=== PATIENT | female | born 1985 ===

== ENCOUNTER 2017-05-01 11:46 | Emergency (ER) | payer SELFPAY ==
[2017-05-01 12:07] VITALS: BP 153/84; PULSE 67; TEMP 97.6; O2SAT 99
--- NOTE | 2017-05-01 12:53 | C.PDOC ---
History Of Present Illness 31 y/o female with past medical history of deep vein thrombosis presents to the ED for evaluation of nose bleed from the left nostril today. Patient reports that she is taking coumadin (normally 6mg/day). Bleeding was stopped by putting pressure on the nose. Denies dizziness or any further medical complaints. Time Seen by Provider: 05/01/17 12:40 Chief Complaint (Nursing): ENT Problem History Per: Patient History/Exam Limitations: None Onset/Duration Of Symptoms: Days (x1 day) Current Symptoms Are (Timing): Still Present Past Medical History Reviewed: Historical Data, Nursing Documentation, Vital Signs Vital Signs: Last Vital Signs Temp 97.6 F 05/01/17 12:06 Pulse 67 05/01/17 12:06 Resp 16 05/01/17 13:20 BP 153/84 H 05/01/17 12:06 Pulse Ox 99 05/01/17 13:51 - Medical History PMH: Anxiety, Depression, Deep Vein Thrombosis Denies: Diabetes, Hepatitis, HIV, HTN, Chronic Kidney Disease, Seizures, Sexually Transmitted Disease Other PMH: Obesity Surgical History: No Surg Hx Family History: States: Unknown Family Hx - Social History Hx Tobacco Use: Yes (Heavy soker >10 cigarettes daily) Hx Alcohol Use: No Hx Substance Use: No - Immunization History Hx Tetanus Toxoid Vaccination: Yes Hx Influenza Vaccination: Yes Hx Pneumococcal Vaccination: Yes Review Of Systems Except As Marked, All Systems Reviewed And Found Negative. (As per HPI, othersie negative) ENT: Positive for: Other (Nose bleed) Neurological: Negative for: Dizziness Physical Exam - Physical Exam Appears: Well, No Acute Distress Skin: Normal Color, Warm, Dry Head: Atraumatic, Normacephalic Eye(s): bilateral: Normal Inspection, PERRL, EOMI Nose: Normal Throat: Normal Neck: Normal, Supple Chest: Symmetrical, No Deformity Cardiovascular: Rhythm Regular, No Murmur Respiratory: Normal Breath Sounds, No Accessory Muscle Use Gastrointestinal/Abdominal: Normal Exam, Soft Back: Normal Inspection Extremity: Normal ROM, No Deformity Neurological/Psych: Oriented x3 ED Course And Treatment O2 Sat by Pulse Oximetry: 99 (RA) Pulse Ox Interpretation: Normal Medical Decision Making Medical Decision Making: Time: 12:51 Upon provider reevaluation patient is feeling better, is medically stable, and requires no further treatment in the ED at this time. Patient will be discharged home. Counseling was provided and all questions were answered regarding diagnosis and need for follow up with Dr. Donnell Wolf. There is agreement to discharge plan. Return if symptoms persist or worsen. Clinical Impression: Nose bleed due to high INR secondary to coumadin Scribe Attestation: Documented by Kirill Hayward acting as a scribe for Scot Acevedo MD. Scribe Attestation: All medical record entries made by the Scribe were at my direction and personally dictated by me. I have reviewed the chart and agree that the record accurately reflects my personal performance of the history, physical exam, medical decision making, and the department course for this patient. I have also personally directed, reviewed, and agree with the discharge instructions and disposition. Disposition Counseled Patient/Family Regarding: Diagnosis - Disposition Referrals: Donnell Wolf MD [Staff Provider] - Disposition: HOME/ ROUTINE Disposition Time: 12:51 Condition: IMPROVED Additional Instructions: Ms. Ortiz, thank you for letting us take care of you today. Return to the ER if any problems. Do not take coumadin today. Take 5 mg coumadin on Wednesday. Then 6 mg on Wednesday. Then alternate 5mg and 6mg each day. Follow up with Dr. Wolf in a couple of days. Instructions: Warfarin (By mouth), Nosebleed (ED) Forms: [employer] (Mozambican) Print Language: QATARI - Clinical Impression Clinical Impression: Elevated INR, Epistaxis
[2017-05-01 13:21] VITALS: RESP 16
== END 2017-05-01 13:20 | disposition home or self-care (01) ==
LOC: C.ER 11:46
DX: R04.0 Epistaxis (principal); R79.1 Abnormal coagulation profile; Z79.01 Long term (current) use of anticoagulants

== ENCOUNTER 2017-12-03 16:53 | Emergency (ER) | payer OTHER, SELFPAY ==
[2017-12-03 17:39] VITALS: O2SAT 99
[2017-12-03] MEDS ORDERED: Naproxen 550 mg Tab PO STA (17:53)
--- NOTE | 2017-12-03 18:06 | C.PDOC ---
History Of Present Illness 32 year old female presents to the emergency department with complaints of pain and swelling to her right elbow for 2 weeks. Pain worse with movement. Also reports some redness to the area though reports that she was out in the sun. She states that she is right handed, and that this is the first time this has happened. She went to see her PMD yesterday, who ordered labs and vascular study. She states her INR level in 1.9 as of yesterday. Compliant with her coumadin. She reports taking Tylenol for the pain, and denies any falls, overuse , change in sensation, or trauma to the area. Time Seen by Provider: 12/03/17 17:19 Chief Complaint (Nursing): Upper Extremity Problem/Injury History Per: Patient History/Exam Limitations: clinical condition Onset/Duration Of Symptoms: Days Current Symptoms Are (Timing): Still Present Quality: "Pain" Past Medical History Reviewed: Historical Data, Nursing Documentation, Vital Signs Vital Signs: Last Vital Signs Temp 98.7 F 12/03/17 19:22 Pulse 83 12/03/17 19:22 Resp 17 12/03/17 19:22 BP 115/74 12/03/17 19:22 Pulse Ox 99 12/03/17 19:22 - Medical History PMH: Anxiety, Depression, Deep Vein Thrombosis Denies: Diabetes, Hepatitis, HIV, HTN, Chronic Kidney Disease, Seizures, Sexually Transmitted Disease Surgical History: No Surg Hx Family History: States: No Known Family Hx - Social History Hx Tobacco Use: Yes (Heavy soker >10 cigarettes daily) Hx Alcohol Use: No Hx Substance Use: No - Immunization History Hx Tetanus Toxoid Vaccination: Yes Hx Influenza Vaccination: Yes Hx Pneumococcal Vaccination: Yes Review Of Systems Constitutional: Negative for: Fever Musculoskeletal: Positive for: Arm Pain (right arm) Neurological: Negative for: Weakness, Numbness Physical Exam - Physical Exam Appears: Non-toxic, No Acute Distress Skin: Warm, Dry Head: Atraumatic, Normacephalic Eye(s): bilateral: Normal Inspection, EOMI Nose: Normal Oral Mucosa: Moist Neck: Normal, Supple Chest: Symmetrical Cardiovascular: Rhythm Regular Respiratory: Normal Breath Sounds, No Accessory Muscle Use Extremity: Normal ROM (full ROM to the right arm but pain is elicited with full extension), Tenderness (to the lateral epicondyle with mild swelling and erythema (same as the area- pt notes its a sunburn)), Capillary Refill (<2 sec) Pulses: Left Radial: Normal, Right Radial: Normal Neurological/Psych: Oriented x3, Normal Speech, Normal Cognition, Normal Sensation ED Course And Treatment O2 Sat by Pulse Oximetry: 99 (RA) Pulse Ox Interpretation: Normal - Other Rad XR Right Elbow X-Ray: Viewed By Me, Read By Radiologist Interpretation: IMPRESSION: No acute displaced fracture, dislocation, or significant joint effusion identified. If symptoms persist, or if there is continued clinical concern, x-ray follow-up in 7-10 days should be considered. Progress Note: Plan: Anaprox DS 550mg PO. XR Right Elbow 3 Views. Discussed with pt no evidence of bony injury. Pt is already anticougulated. Offered repeat labs, declined. Some erythema and swelling to the skin, frank give abx for possible cellulites though mininal. Also instructed to follow up with PMD in 1- 2 days re-evaluation. Disposition - Disposition Referrals: Rosa M Appiah MD [Medical Doctor] - Disposition: HOME/ ROUTINE Disposition Time: 18:54 Condition: STABLE Additional Instructions: Regrese maana a la rabia de emergencias para ricardo prueba vascular. [place] la medicacin segn lo prescrito. Prescriptions: Acetaminophen [Tylenol 325mg tab] 650 mg PO Q4 PRN #20 tab PRN Reason: Pain, Mild (1-3) Cephalexin [cephalexin] 500 mg PO TID #21 cap Instructions: Tendonitis (DC) Forms: [employer] (Norwegian) Print Language: BENGALI - Clinical Impression Clinical Impression: Lateral epicondylitis - PA / PHOTOVOLTAIC TECHNICIAN / Resident Statement MD/DO has reviewed & agrees with the documentation as recorded. - Scribe Statement The provider has reviewed the documentation as recorded by the Scribe (oJse F Calero) All medical record entries made by the Scribe were at my direction and personally dictated by me. I have reviewed the chart and agree that the record accurately reflects my personal performance of the history, physical exam, medical decision making, and the department course for this patient. I have also personally directed, reviewed, and agree with the discharge instructions and disposition.
[2017-12-03] MEDS ORDERED: Naproxen 550 mg Tab PO ONE (18:16)
--- NOTE | 2017-12-03 18:48 | RAD ---
PROCEDURE: Radiographs of the right elbow. HISTORY: trauma COMPARISON: None available. FINDINGS: BONES: No acute displaced fracture. JOINTS: No dislocation. SOFT TISSUES: Unremarkable. No evidence of radiopaque foreign body. JOINT EFFUSION: No significant joint effusion. OTHER FINDINGS: None IMPRESSION: No acute displaced fracture, dislocation, or significant joint effusion identified. If symptoms persist, or if there is continued clinical concern, x-ray follow-up in 7-10 days should be considered.
[2017-12-03 19:24] VITALS: BP 115/74; PULSE 83; RESP 17; TEMP 98.7
== END 2017-12-03 19:24 | disposition home or self-care (01) ==
LOC: C.ER 16:53
DX: M77.11 Lateral epicondylitis, right elbow (principal); F17.210 Nicotine dependence, cigarettes, uncomplicated

== ENCOUNTER 2017-12-04 08:18 | Emergency (ER) | payer OTHER ==
[2017-12-04 08:36] VITALS: PULSE 82; TEMP 98.3; BMI 65.8
--- NOTE | 2017-12-04 08:57 | C.PDOC ---
History Of Present Illness 32 year old female presents to the emergency department after being sent by her PMD to rule out right arm DVT. Patient complains of swelling to her right elbow for one week. She denies trauma, erythema, or itchiness. She reports that her swelling is constant and localized to her right elbow. She states that she is currently taking Coumadin. She denies chest pain and shortness of breath. FOR DUPLEX RO R ARM DVT. CO SWELLING R ELBOW X 1 WEEK. NO TRAUMA, ERYTHEMA, ITCH. CONSTANT LOCALIZED. ON COUMADIN. DENIES CP/SOB EXAM NARD NONTOXIC OBESE EXT NONPITTING EDEMA R ELBOW, NO EXCESS WARMTH, ATRAUM, AROM WO DIFF NONTEND; LUE NEG SKIN NO ERYTHEMA, HIVES, LESIONS REMAINDER NEG Time Seen by Provider: 12/04/17 08:37 Chief Complaint (Nursing): Upper Extremity Problem/Injury History Per: Patient History/Exam Limitations: no limitations Onset/Duration Of Symptoms: Other (1 week) Current Symptoms Are (Timing): Still Present Quality: Other (swelling) Past Medical History Reviewed: Historical Data, Nursing Documentation, Vital Signs Vital Signs: Last Vital Signs Temp 98.3 F 12/04/17 08:41 Pulse 82 12/04/17 08:41 Resp 19 12/04/17 08:41 BP 127/82 12/04/17 08:41 Pulse Ox 97 12/04/17 09:38 - Medical History PMH: Anxiety, Depression, Deep Vein Thrombosis Denies: Diabetes, Hepatitis, HIV, HTN, Chronic Kidney Disease, Seizures, Sexually Transmitted Disease Surgical History: No Surg Hx Family History: States: No Known Family Hx - Social History Hx Tobacco Use: Yes (Heavy soker >10 cigarettes daily) Hx Alcohol Use: No Hx Substance Use: No - Immunization History Hx Tetanus Toxoid Vaccination: Yes Hx Influenza Vaccination: Yes Hx Pneumococcal Vaccination: Yes Review Of Systems Except As Marked, All Systems Reviewed And Found Negative. (erythema,) Cardiovascular: Negative for: Chest Pain Respiratory: Negative for: Shortness of Breath Musculoskeletal: Positive for: Other (right elbow swelling) Skin: Negative for: Other (erythema, itch) Physical Exam - Physical Exam Appears: Non-toxic, No Acute Distress, Other (obese) Skin: Warm, Dry, No Other (erythema, hives, lesions) Head: Atraumatic, Normacephalic Eye(s): bilateral: Normal Inspection Neck: Normal, Supple Chest: Symmetrical Cardiovascular: Rhythm Regular Respiratory: Normal Breath Sounds, No Rales, No Rhonchi, No Wheezing Extremity: Normal ROM (at the right elbow without difficulty), No Tenderness, Swelling (non-pitting edema at the right elbow, no excess warmth) Extremity: Bilateral: Atraumatic Neurological/Psych: Oriented x3, Normal Speech, Normal Cognition ED Course And Treatment - Laboratory Results Result Diagrams: 12/04/17 09:10 12/04/17 09:10 O2 Sat by Pulse Oximetry: 97 (RA) Pulse Ox Interpretation: Normal - CT Scan/US VENOUS DUP RUE Other Rad Studies (CT/US): Radiology Report Reviewed (NEG) Progress Note: Plan: BMP. CBC. PTT. Prothrombin Time. Venous Duplex Scan RUE Disposition Counseled Patient/Family Regarding: Studies Performed, Diagnosis, Need For Followup - Disposition Referrals: YOUR,PMD [Other] Disposition: HOME/ ROUTINE Disposition Time: 10:12 Condition: GOOD Additional Instructions: FOLLOW UP WITH YOUR PMD Forms: [employer] (Gabonese), General Discharge Instructions - Clinical Impression Clinical Impression: Arm swelling - Scribe Statement The provider has reviewed the documentation as recorded by the Scribe (Jose F Calero) Provider Attestation: All medical record entries made by the Scribe were at my direction and personally dictated by me. I have reviewed the chart and agree that the record accurately reflects my personal performance of the history, physical exam, medical decision making, and the department course for this patient. I have also personally directed, reviewed, and agree with the discharge instructions and disposition.
[2017-12-04 09:18] LABS: BASO # 0.1 K/uL (0.0-0.2); EOS # 0.4 K/uL (0.0-0.7); EOS % 5.8 % (0.0-4.0); HEMOGLOBIN 12.6 g/dL (11.0-16.0); LYMPH # 3.7 K/uL (1.0-4.3); LYMPH % 47.6 % (20.0-40.0); MEAN CELL VOLUME 84.5 fL (81.0-99.0); MEAN CORPUSCULAR HGB CONC 33.1 g/dL (33.0-37.0); MEAN PLATELET VOLUME 8.5 fL (7.2-11.7); MONO # 0.5 K/uL (0.0-0.8); MONO % 6.5 % (0.0-10.0); NEUT % 39.1 % (50.0-75.0); NRBC % 0.5 % (0.0-2.0); RBC 4.51 Mil/uL (3.80-5.20); RED CELL DISTRIBUTION WIDTH 15.9 % (11.5-14.5); WHITE BLOOD COUNT 7.8 K/uL (4.8-10.8)
[2017-12-04 09:25] LABS: INR 1.9; PROTHROMBIN TIME 20.8 SECONDS (9.7-12.2)
[2017-12-04 09:49] LABS: CALCIUM 9.3 mg/dl (8.6-10.4); GFR NON-AFRICAN AMERICAN > 60
[2017-12-04 09:51] LABS: BLOOD UREA NITROGEN 14 mg/dL (7-17)
[2017-12-04 10:27] VITALS: BP 137/77; RESP 18; O2SAT 100
--- NOTE | 2017-12-06 10:32 | VASCLAB ---
Date of service: 12/04/2017 PROCEDURE: Right Upper Extremity Venous Duplex Exam HISTORY: Right arm swelling PRIORS: None. TECHNIQUE: Right upper extremity, internal jugular, subclavian, axillary, brachial, ulnar, radial, basilic and upper cephalic veins were evaluated. Flow was assessed with color Doppler, compressibility, assessment of phasic flow and augmentation response. Report prepared by ROSMERY Doe FINDINGS: RIGHT: 1. Internal Jugular: 1.1. Compressibility - Fully compressible: Thrombus - None : Flow - Phasic: Augmentation -Normal: Reflux - None. 2. Subclavian: 2.1. Compressibility - Fully compressible: Thrombus - None : Flow - Phasic: Augmentation -Normal: Reflux - None. 3. Axillary: 3.1. Compressibility - Fully compressible: Thrombus - None : Flow - Phasic: Augmentation -Normal: Reflux - None. 4. Brachial: 4.1. Compressibility - Fully compressible: Thrombus - None: Flow - Phasic: Augmentation -Normal: Reflux - None. 5. Ulnar: 5.1. Compressibility - Fully compressible: Thrombus - None: Flow - Phasic: Augmentation -Normal: Reflux - None. 6. Radial: 6.1. Compressibility - Fully compressible: Thrombus - None: Flow - Phasic: Augmentation - Normal: Reflux - None. 7. Cephalic: 7.1. Compressibility - Fully compressible: Thrombus - None: Flow - Phasic: Augmentation -Normal: Reflux - None. 8. Basilic: 8.1. Compressibility - Fully compressible: Thrombus - None: Flow - Phasic: Augmentation -Normal: Reflux - None. OTHER FINDINGS: Right: None. IMPRESSION: Right: No evidence of vein thrombosis of the right upper extremity with excellent venous flow. Normal valve function noted of the right side. Normal venous flow noted in the left internal jugular and left subclavian veins.
== END 2017-12-04 10:27 | disposition home or self-care (01) ==
LOC: C.ER 08:18
DX: M79.89 Other specified soft tissue disorders (principal); F17.210 Nicotine dependence, cigarettes, uncomplicated; Z86.718 Personal history of other venous thrombosis and embolism; Z79.01 Long term (current) use of anticoagulants

== ENCOUNTER 2018-03-01 19:14 | Emergency (ER) | payer OTHER ==
[2018-03-01 19:15] VITALS: BMI 65.8
[2018-03-01 19:30] VITALS: BP 115/79; PULSE 90; RESP 22; TEMP 97.6; O2SAT 99
--- NOTE | 2018-03-01 20:36 | C.PDOC ---
History Of Present Illness 32 year old female presents to the ER with a complaint of an itchy rash to her face since yesterday that has now spread to her ears and with swelling. Denies SOB, itchy throat, or chest tightness. Time Seen by Provider: 03/01/18 19:51 Chief Complaint (Nursing): Allergic Reaction History Per: Patient History/Exam Limitations: no limitations Onset/Duration Of Symptoms: Days Current Symptoms Are (Timing): Still Present Possible Cause: Unknown Associated Symptoms: Skin Rash, Swelling (Ears) Home/EMS Treatment: None Recent travel outside of the [place]: No Past Medical History Reviewed: Historical Data, Nursing Documentation, Vital Signs Vital Signs: Last Vital Signs Temp 97.6 F 03/01/18 19:27 Pulse 90 03/01/18 19:27 Resp 22 03/01/18 19:27 BP 115/79 03/01/18 19:27 Pulse Ox 99 03/01/18 19:27 - Medical History PMH: Anxiety, Depression, Deep Vein Thrombosis Denies: Diabetes, Hepatitis, HIV, HTN, Chronic Kidney Disease, Seizures, Sexually Transmitted Disease Family History: States: Unknown Family Hx - Social History Hx Tobacco Use: Yes (Heavy soker >10 cigarettes daily) Hx Alcohol Use: No Hx Substance Use: No - Immunization History Hx Tetanus Toxoid Vaccination: Yes Hx Influenza Vaccination: Yes Hx Pneumococcal Vaccination: Yes Review Of Systems ENT: Negative for: Mouth Swelling, Throat Swelling, Other (Throat itchiness) Respiratory: Negative for: Shortness of Breath, Other (Chest tightness) Skin: Positive for: Rash Physical Exam - Physical Exam Appears: Non-toxic Skin: Warm, Dry, Rash (Macular erythematous diffusely to face sparing the nose, no butterfly rash. Macular to anterior forearms.) Head: Atraumatic, Normacephalic Eye(s): bilateral: Normal Inspection Ear(s): Bilateral: Normal Nose: Normal Oral Mucosa: Moist, No Other (Lesions) Tongue: Normal Appearing, No Swelling Lips: Normal Appearing, No Swelling Throat: Normal, No Other (Swelling) Cardiovascular: Rhythm Regular Respiratory: Normal Breath Sounds, No Accessory Muscle Use, No Stridor, No Wheezing Neurological/Psych: Oriented x3, Normal Speech ED Course And Treatment O2 Sat by Pulse Oximetry: 99 (Room air) Pulse Ox Interpretation: Normal Progress Note: Benadryl and prednisone administered. Patient is resting comfortably in the ER in no acute respiratory distress, vitals are stable, will discharge home with Rx and instructions to follow up with PMD. Disposition - Disposition Referrals: [facility] [Outside] Disposition: HOME/ ROUTINE Disposition Time: 20:34 Condition: STABLE Additional Instructions: Take medications as directed Follow up with PMD Return to ER if worse Prescriptions: DiphenhydrAMINE [Benadryl] 50 mg PO Q6H #20 cap predniSONE [Prednisone] 40 mg PO DAILY #8 tab Instructions: Sundar (DC) Forms: [employer] (Hebrew) Print Language: VENEZUELAN - Clinical Impression Clinical Impression: Allergic urticaria - PA / FORMULA CHECKER / Resident Statement MD/DO has reviewed & agrees with the documentation as recorded. - Scribe Statement The provider has reviewed the documentation as recorded by the Scribmarlene Dejesus All medical record entries made by the Romyibmarlene were at my direction and personally dictated by me. I have reviewed the chart and agree that the record a ccurately reflects my personal performance of the history, physical exam, medical decision making, and the department course for this patient. I have also personally directed, reviewed, and agree with the discharge instructions and disposition.
== END 2018-03-01 20:42 | disposition home or self-care (01) ==
LOC: C.ER 19:14
DX: L50.0 Allergic urticaria (principal)

== ENCOUNTER 2018-07-18 09:19 | Emergency (ER) | payer OTHER ==
[2018-07-18 09:20] VITALS: BMI 65.8
[2018-07-18 09:31] VITALS: BP 120/79; PULSE 72; RESP 18; TEMP 97.9; O2SAT 100
--- NOTE | 2018-07-18 09:58 | C.PDOC ---
History Of Present Illness 33 year old female presents to ED with complaint of itchy rash to her face, arms, and torso since last night. Patient states that she recently started using a new shower gel. She states that she applied Benadryl with only transient relief. Patient denies SOB, lip/tongue swelling, and sensation of the throat closing. Time Seen by Provider: 07/18/18 09:39 Chief Complaint (Nursing): Abnormal Skin Integrity History Per: Patient History/Exam Limitations: no limitations Onset/Duration Of Symptoms: Days (1) Current Symptoms Are (Timing): Still Present Quality Of Symptoms: Itching Past Medical History Reviewed: Historical Data, Nursing Documentation, Vital Signs Vital Signs: Last Vital Signs Temp 97.9 F 07/18/18 09:28 Pulse 72 07/18/18 09:28 Resp 18 07/18/18 09:28 BP 120/79 07/18/18 09:28 Pulse Ox 100 07/18/18 09:28 - Medical History PMH: Anxiety, Depression, Deep Vein Thrombosis Denies: Diabetes, Hepatitis, HIV, HTN, Chronic Kidney Disease, Seizures, Sexually Transmitted Disease Surgical History: No Surg Hx Family History: States: Unknown Family Hx - Social History Hx Tobacco Use: Yes (Heavy soker >10 cigarettes daily) Hx Alcohol Use: No Hx Substance Use: No - Immunization History Hx Tetanus Toxoid Vaccination: Yes Hx Influenza Vaccination: Yes Hx Pneumococcal Vaccination: Yes Review Of Systems Constitutional: Negative for: Fever, Chills, Weakness ENT: Negative for: Mouth Swelling (lip and togue swelling), Other (sensation of the throat closing) Respiratory: Negative for: Shortness of Breath Skin: Positive for: Rash (itchy rash to the face, arms, and torso) Neurological: Negative for: Weakness, Numbness Physical Exam - Physical Exam Appears: Well, Non-toxic, No Acute Distress, Other (speaking full sentences) Skin: Rash (diffuse urticaria to the cheeks, arms, chest, and abdomen) Head: Atraumatic, Normacephalic Oral Mucosa: Moist Tongue: No Swelling Lips: No Swelling Throat: No Drooling Neck: Normal ROM, Supple Chest: Symmetrical, No Deformity Cardiovascular: Rhythm Regular, No Murmur Respiratory: No Accessory Muscle Use, No Rales, No Rhonchi, No Stridor, No Wheez ing Extremity: Capillary Refill (<2 seconds) Neurological/Psych: Oriented x3, Normal Speech, Normal Cognition ED Course And Treatment O2 Sat by Pulse Oximetry: 100 (in RA) Progress Note: Patient given Claritan and prednisone PO. Patient given prescriptions for both claritan and prednisone. Patient discharged home. Re- evaluation. Patient feels better. Discussed results and plan with patient who expresses understanding. All questions answered and there is agreement with the plan to discharge home with instructions. Patient stable for discharge. Return if symptoms persist or worsen. Disposition Counseled Patient/Family Regarding: Diagnosis, Need For Followup, Rx Given - Disposition Referrals: Marva Vazquez APN [Advanced Practice Nurse] - Disposition: HOME/ ROUTINE Disposition Time: 10:15 Condition: STABLE Additional Instructions: FOLLOW UP WITH YOUR DOCTOR/CLINIC IN 1-2 DAYS USE MEDICATIONS DIRECTED RETURN TO EMERGENCY ROOM IF SYMPTOMS WORSEN SEGUIR CON RUBIN MDICO / CLNICA EN 1-2 MILLS UTILICE MEDICAMENTOS RICK SE DIRIGE VUELVA A LA HUBER DE EMERGENCIA SI LOS SNTOMAS SE CROWE PROBLEMAS Prescriptions: Loratadine [Claritin] 10 mg PO DAILY PRN #30 tab PRN Reason: Itching / Pruritus predniSONE [predniSONE Tab] 40 mg PO DAILY #6 tab Instructions: Hives (DC) Forms: [employer] ([place]er) Print Language: TELUGU - Clinical Impression Clinical Impression: Allergic urticaria - Scribe Statement The provider has reviewed the documentation as recorded by the Scribe (Silvana Cárdenas) All medical record entries made by the Scribe were at my direction and personally dictated by me. I have reviewed the chart and agree that the record accurately reflects my personal performance of the history, physical exam, medical decision making, and the department course for this patient. I have also personally directed, reviewed, and agree with the discharge instructions and disposition.
== END 2018-07-18 10:03 | disposition home or self-care (01) ==
LOC: C.ER 09:19
DX: L50.0 Allergic urticaria (principal)

== ENCOUNTER 2018-08-20 11:39 | Outpatient (CLI) | payer OTHER | END 2018-08-20 11:40 | disposition home or self-care (01) | LOC: C.LAB 11:39 | DX: L50.9 Urticaria, unspecified (principal) ==

== ENCOUNTER 2018-08-20 12:05 | Emergency (ER) | payer OTHER ==
[2018-08-20 12:06] VITALS: BMI 65.8
--- NOTE | 2018-08-20 12:51 | C.PDOC ---
History Of Present Illness Patient is a 33yo female with PMH DVT (LLE, age 20, on coumadin, reports last INR therapeutic) who presents with a left lower extremity wound and associated pain. Patient reports an ulcer on her LLE 1 year ago for which she used mupirocin cream which healed after 3 months. States that she noticed current wound one week ago. Reports pain and redness surrounding the wound. Has been using mupirocin cream with no improvement. Denies fever/chills, headache, chest pain, SOB, abdominal pain, joint pain. No history of DM. Time Seen by Provider: 08/20/18 12:31 Chief Complaint (Nursing): Lower Extremity Problem/Injury Past Medical History Vital Signs: Last Vital Signs Temp 97.8 F 08/20/18 12:16 Pulse 70 08/20/18 12:16 Resp 16 08/20/18 12:16 BP 100/60 08/20/18 12:32 Pulse Ox 100 08/20/18 12:16 Primary Care Provider: Marva Vazquez - Medical History PMH: Anxiety, Depression, Deep Vein Thrombosis Denies: Diabetes, Hepatitis, HIV, HTN, Chronic Kidney Disease, Seizures, Sexually Transmitted Disease Family History: States: Unknown Family Hx - Social History Hx Tobacco Use: Yes (Heavy soker >10 cigarettes daily) Hx Alcohol Use: No Hx Substance Use: No - Immunization History Hx Tetanus Toxoid Vaccination: Yes Hx Influenza Vaccination: Yes Hx Pneumococcal Vaccination: Yes Review Of Systems Except As Marked, All Systems Reviewed And Found Negative. Physical Exam - Physical Exam Appears: Well, Non-toxic, No Acute Distress Skin: Normal Color, Warm, Dry Cardiovascular: Rhythm Regular Extremity: Calf Tenderness (left. Left calf larger than right (per patient, this is unchanged from DVT at age 20)), Other (Left anterior lower leg with several excoriations and one small skin tear. No drainage. Area of surrounding erythema and warmth, painful to touch) ED Course And Treatment O2 Sat by Pulse Oximetry: 100 Progress Note: Lower leg wound with associated cellulitis, questionable calf tenderness. Will check if INR therapeutic Disposition Counseled Patient/Family Regarding: Studies Performed, Diagnosis, Rx Given - Disposition Disposition: HOME/ ROUTINE Disposition Time: 15:35 Condition: GOOD Additional Instructions: Follow up with your breakdown man this week regarding your coumadin/INR. Return to ED for any worsening symptoms, or if you develop significant leg pain, chest pain, or shortness of breath Prescriptions: Clindamycin [Cleocin] 300 mg PO BID #14 cap Instructions: Cellulitis (Skin Infection), Adult (DC) Forms: [employer] (Welsh) - POA Present On Arrival: None - Clinical Impression Clinical Impression: Cellulitis of leg without foot, left, History of DVT (deep vein thrombosis)
[2018-08-20 14:51] VITALS: RESP 18
[2018-08-20 15:15] LABS: INR 1.9; PROTHROMBIN TIME 20.8 SECONDS (9.7-12.2)
[2018-08-20 15:52] VITALS: BP 108/66; PULSE 98; TEMP 97.7; O2SAT 97
== END 2018-08-20 15:52 | disposition home or self-care (01) ==
LOC: C.ER 12:05
DX: L03.116 Cellulitis of left lower limb (principal); Z86.718 Personal history of other venous thrombosis and embolism; Z79.01 Long term (current) use of anticoagulants; F17.210 Nicotine dependence, cigarettes, uncomplicated